=== PATIENT | female | born 1975 | race Caucasian/White ===

== ENCOUNTER → 2016-12-28 | Outpatient (CLI) | payer BC ==
[~2016-12-28] MED LIST: ACET-1311 PO; IBUP600T44 PO; PRENTAB26 PO
--- NOTE | 2016-12-28 17:16 | MAMMOGRAPHY REPORT ---
BILATERAL DIGITAL DIAGNOSTIC MAMMOGRAM TOMOSYNTHESIS WITH CAD AND TARGETED LEFT ULTRASOUND: 12/28/2016 CLINICAL HISTORY: The patient reports a palpable lump in her left breast one month ago, which is now smaller. TECHNIQUE: Breast tomosynthesis in addition to standard 2D mammography was performed. Current study was also evaluated with a Computer Aided Detection (CAD) system. Bilateral CC and MLO 2-D and tomosy nthesis images and spot magnification left CC and ML views were obtained. COMPARISON: Comparison is made to exams dated: 06/01/2012 ultrasound, 06/01/2012 mammogram, 06/28/2010 mammogram, and 06/28/2010 ultrasound - [facility]. BREAST COMPOSITION: The tissue of both breasts is extremely dense, which lowers the sensitivity of m ammography. FINDINGS: A triangle marker newton the site of the palpable lump in the left lower inner quadrant. P ossible obscured masses are seen in this region on the tomosynthesis images, for which ultrasound is recommended. Additionally, there is a possible oval partially circumscribed and partially obscured 9 mm mass within the left upper outer quadrant posteriorly, best seen on the MLO tomosynthesis images (slice 4/38). There are loosely grouped punctate benign-appearing calcifications within the left low er inner quadrant, which are stable dating back to the 2010 exam, and are considered benign given the long-term stability and likely represent fibrocystic changes. The remainder of both breasts are not significantly changed, without suspicious masses, calcifications, or areas of architectural distorti on noted. Targeted ultrasound was performed of the area of the palpable lump pointed out by the patient, in the left breast at approximately 7:00, 3 cm from the nipple. At the site of the palpable lump there are numerous subcentimeter round/oval anechoic circumscribed masses, consistent with cysts. The largest cysts measure approximately 4-5 mm. Many of the masses have punctate echogenic foci within them, co nsistent with the calcifications seen mammographically. Findings are benign and compatible with fibr ocystic changes. Targeted ultrasound was performed of the left upper outer quadrant in the region of the possible mammographic mass. Scattered round/oval circumscribed anechoic masses are also seen, c onsistent with cysts. The largest cyst measures 6 mm in the left breast at 2:00 periareolar region. No suspicious solid masses are evident. IMPRESSION: ACR BI-RADS CATEGORY 2: BENIGN, TARGETED ULTRASOUND ACR BI-RADS CATEGORY 2: BENIGN Multiple adjacent benign cysts seen at the site of the palpable lump in the left 7:00 breast, consist ent with benign fibrocystic changes. There is no mammographic or targeted sonographic evidence of ma lignancy. Recommend clinical follow-up for the palpable lump, and recommend routine bilateral screen ing mammograms in one year. The patient has been verbally notified of the results. Approximately 10% of breast cancers are not detected with mammography. A negative mammographic report should not delay biopsy if a clinically suggestive mass is present. Shanice Yuan M.D. ah/:12/28/2016 15:21:11 [employer]: Rubia MCGEE([place])(M), [facility] letter sent: Normal 1/2 BI-RADS Code: ACR BI-RADS Category 2: Benign Ultrasound BI-RADS: ACR BI-RADS Category 2: Benign
== END | disposition home or self-care (01) ==
LOC: C.MAMM 13:21
PROVIDERS: ATTEND Physician Assistant
DX: N63 Unspecified lump in breast (principal)